=== PATIENT | female | born 1980 | race Caucasian/White ===

== ENCOUNTER 2017-09-11 07:12 | Day surgery (SDC) | payer BC, OTHER ==
[~2017-09-11] VITALS: Ht 167.6 cm; Wt 99.8 kg
[~2017-09-11 07:12] MED LIST: PRENATAL 19 CH1 EAC1 PO
== END 2017-09-11 09:18 | disposition home or self-care (01) ==
LOC: OPS 07:12 → DS 07:12 → OPS 08:15 → DS 08:15 → OPS 09:18
PROVIDERS: Ophthalmology
PROC: 08RJ3JZ Replacement of Right Lens with Synthetic Substitute, Percutaneous Approach (ICD-10-PCS; principal; 2017-09-11 08:15)
DX: H25.043 Posterior subcapsular polar age-related cataract, bilateral (principal); J45.909 Unspecified asthma, uncomplicated; E66.01 Morbid (severe) obesity due to excess calories; Z88.5 Allergy status to narcotic agent; Z68.35 Body mass index [BMI] 35.0-35.9, adult; Z79.899 Other long term (current) drug therapy